=== PATIENT | female | born 1970 | race Caucasian/White ===

== ENCOUNTER 2019-07-25 07:53 | Emergency (ER) | payer MEDICARE, MEDICAID ==
[~2019-07-25] VITALS: Ht 182.9 cm; Wt 130.0 kg
[~2019-07-25 07:53] MED LIST: METHADONE; QUET400T4; TIZA4CAP2
[2019-07-25] MEDS ORDERED: SERT100T PO (08:42)
[2019-07-25] MEDS ORDERED: LISI-170 PO (08:42)
[2019-07-25] MEDS ORDERED: ATOR-2 PO (08:42)
[2019-07-25] MEDS ORDERED: PIOG15TA66 PO (08:42)
[2019-07-25] MEDS ORDERED: GABA300C10 PO (08:42)
[2019-07-25] MEDS ORDERED: METF500T17 PO (08:42)
[2019-07-25] MEDS ORDERED: METH40TA3 PO (08:42)
[2019-07-25] MEDS ORDERED: TRAJENTA PO (08:42)
[2019-07-25] MEDS ORDERED: TRAZ-137 PO (08:42)
--- NOTE | 2019-07-25 08:42 | NUR ---
TASK RN: PT AMBULATORY TO ROOM FROM TRIAGE. C/O LBP AND NECK PAIN NUMBNESS X 1 MONTH. INSTRUCTED TO COME TO ED BY PMD. PT STATES, "HE WANTED TO GET XRAYS BUT IT WOULD TAKE TOO LONG TO GET APPROVAL FROM MY INSURANCE AND HE THINKS I MIGHT HAVE AN INFECTION. CALL LIGHT W/I REACH, NADN. AWAITING ER PROVIDER KAMALJIT.
--- NOTE | 2019-07-25 10:00 | NUR ---
PT REQUESTING PAIN MEDICATIONS. DR. KAUFFMAN AWARE.
[2019-07-25] MEDS ORDERED: OXYcodone IR 5MG TABLET ONE ×2 (10:25→10:26)
[2019-07-25] MEDS ORDERED: OXYcodone IR 5MG TABLET PO PRN (10:30)
[2019-07-25] MEDS ORDERED: OXYcodone IR 30 MG TABLET PO ONE (10:30)
[2019-07-25 10:38] VITALS: BP 110/67
== END 2019-07-25 10:40 | disposition home or self-care (01) ==
LOC: ED 09:55
DX: M54.2 Cervicalgia (principal); M54.5 Low back pain; I10 Essential (primary) hypertension; E11.9 Type 2 diabetes mellitus without complications; F31.9 Bipolar disorder, unspecified; F43.10 Post-traumatic stress disorder, unspecified; E78.00 Pure hypercholesterolemia, unspecified; Z98.890 Other specified postprocedural states; Z87.891 Personal history of nicotine dependence
CPT/HCPCS: 72040; 72131; 99284